=== PATIENT | female | born 1965 | race Caucasian/White ===

== ENCOUNTER 2016-08-25 20:58 | Emergency (ER) | payer OTHER, BC ==
[~2016-08-25] VITALS: Ht 165.1 cm; Wt 86.0 kg
[~2016-08-25 20:58] MED LIST: CYANOCOBALAM1000 MCG IJ
[2016-08-25] MEDS ORDERED: TRAZODONE50 MG PO (21:11)
[2016-08-25] MEDS ORDERED: OMEPRAZOLE10 MG PO (21:11)
[2016-08-25] MEDS ORDERED: GABAPENTIN100 MG PO (21:12)
[2016-08-25] MEDS ORDERED: NAPROSYN500 MG PO (23:09)
[2016-08-25 23:14] VITALS: BP 133/67
== END 2016-08-25 23:10 | disposition home or self-care (01) | DRG 563 ==
LOC: ED 20:58
DX: S93.402A Sprain of unspecified ligament of left ankle, initial encounter (principal); M25.472 Effusion, left ankle; S80.211A Abrasion, right knee, initial encounter; W17.89XA Other fall from one level to another, initial encounter; Y93.89 Activity, other specified; Y92.211 Elementary school as the place of occurrence of the external cause